=== PATIENT | male | born 1990 | race Caucasian/White ===

== ENCOUNTER 2017-02-22 11:05 | Emergency (ER) | payer OTHER ==
[~2017-02-22] VITALS: Ht 190.5 cm; Wt 102.1 kg
[2017-02-22 11:15] VITALS: BP 132/57
[2017-02-22] MEDS ORDERED: HYDROcodone-ACET 10/325MG TAB PO ONE (11:45)
== END 2017-02-22 13:15 | disposition home or self-care (01) ==
LOC: ER 11:09
DX: S92.102A Unspecified fracture of left talus, initial encounter for closed fracture (principal); S82.62XA Displaced fracture of lateral malleolus of left fibula, initial encounter for closed fracture; V86.59XA Driver of other special all-terrain or other off-road motor vehicle injured in nontraffic accident, initial encounter; Y93.89 Activity, other specified; Y99.8 Other external cause status; Y92.89 Other specified places as the place of occurrence of the external cause
CPT/HCPCS: 29505; 73610; 73700

== ENCOUNTER 2020-09-22 19:05 | Emergency (ER) | payer BC, OTHER ==
[2020-09-22 20:30] VITALS: BP 168/97
[2020-09-22] MEDS ORDERED: IPRATROPIUM BROM 0.5 MG/2.5ML INH SOL NEB ONE (21:00)
[2020-09-22] MEDS ORDERED: ACETAMINOPHEN 325 MG TAB PO ONE (21:00)
[2020-09-22] MEDS ORDERED: ALBUTEROL SULF 2.5 MG/0.5ML(0.5%) NEB SOLN NEB ONE (21:00)
[2020-09-22 22:34] LABS: Basophils # (auto) 0 10 ^3/uL (0-0.2); Basophils % (auto) 0.6 % (0.0-2.0); Eosinophils # (auto) 0.1 10 ^3/uL (0-0.8); Eosinophils % (auto) 3.7 % (0.0-7.0); Hematocrit 43.4 % (41.0-53.0); Hemoglobin 14.8 g/dL (13.5-17.5); Lymphocytes # (auto) 0.7 10 ^3/uL (0.4-5.4); Lymphocytes % (auto) 22.5 % (10.0-50.0); Mean Corpuscular Hemoglobin 30.2 pg (28.0-32.0); Mean Corpuscular Volume 88.9 fL (80.0-100.0); Monocytes # (auto) 0.4 10 ^3/uL (0-1.3); Monocytes % (auto) 12.5 % (0.0-12.0); Neutrophils # (auto) 1.8 10 ^3/uL (1.6-8.6); Neutrophils % (auto) 60.7 % (37.0-80.0); Nucleated Red Blood Cells % 0.2 %; Platelet Count (auto) 150 10^3/uL (140-450); Red Blood Cells 4.89 10^6/uL (4.5-5.90); Red Cell Distribution Width 11.9 % (11.8-14.3)
[2020-09-22 23:02] LABS: Anion Gap 4 (5-15); Blood Urea Nitrogen 13 mg/dL (7-18); Calcium 8.7 mg/dL (8.5-10.1); Carbon Dioxide 29 mmol/L (21-32); Chloride 106 mmol/L (98-107); Glucose 99 mg/dL (74-106); Potassium 4.1 mmol/L (3.5-5.1); Sodium 139 mmol/L (136-145)
[2020-09-22 23:11] LABS: Alanine Aminotransferase 24 U/L (16-61); Alkaline Phosphatase 60 U/L (45-117); Aspartate Aminotransferase 12 U/L (15-37); BUN/Creatinine Ratio 11.1; Bilirubin, Total 0.3 mg/dL (0.2-1.0); GFR African American 94 mL/min; GFR Non-African American 78 mL/min; Total Protein 7.2 g/dL (6.4-8.2)
== END 2020-09-23 01:42 | disposition home or self-care (01) ==
LOC: ER 19:06
DX: U07.1 COVID-19 (principal); J45.21 Mild intermittent asthma with (acute) exacerbation
CPT/HCPCS: 36415; 71045; 80053; 83880; 84443; 84484; 85025; 87426; 93005; 94640; 99285; J7644